=== PATIENT | female | born 1945 | race Caucasian/White ===

== ENCOUNTER → 2019-06-10 10:08 | Outpatient (CLI) | payer MEDICARE, SELFPAY ==
--- NOTE | ~2019-06-10 | MR_ITS ---
EXAMINATION: MR hip RT wo con DATE: 06/10/2019 11:15 INDICATION: Right hip pain. TECHNIQUE: Magnetic resonance imaging (MRI) of the right hip was performed without intravenous contra st. Sequences included axial and coronal PD-weighted FS FSE and axial T1-weighted FSE of the pelvis. Sequences of the hip included 2D FIESTA, T1-weighted fast GRE, and axial, coronal, and sagittal PD-we ighted FS FSE. COMPARISON: Right hip radiographs 04/12/2019 FINDINGS: Bones/cartilage: Bone alignment is normal. No fracture. There are changes of anterior and posterior fusion procedures in lumbar spine. There is symmetric mild osteoarthritis of the hips. Specifically, the right hip join t demonstrates partial thickness cartilage loss, subchondral cysts in acetabulum and femoral head, an d osteophytes. Labrum: There is extensive tearing of the acetabular codie bilaterally. Fluid: There is no hip joint effusion. There is mild bilateral trochanteric bursitis. Soft tissues: There is severe tendinopathy of the hamstring origins bilaterally. There are partial tears of the ham string origins bilaterally. The iliopsoas tendons are normal. There are partial tears of the right gl uteus medius and gluteus minimus tendons. There is a partial tear of left gluteus minimus tendon. Lef t gluteus medius tendon is intact. IMPRESSION: 1. Mild osteoarthritis of the hips. 2. Partial tears of the bilateral gluteus minimus tendons and right gluteus medius tendon. 3. Mild bilateral trochanteric bursitis. Reviewed, dictated and finalized at location A. IMPRESSION: 1. Mild osteoarthritis of the hips. 2. Partial tears of the bilateral gluteus minimus tendons and right gluteus med ius tendon. 3. Mild bilateral trochanteric bursitis.
== END ==
PROVIDERS: PCP Family Medicine; Visit Provider Orthopaedic Surgery
DX: M25.551 Pain in right hip (principal); M16.11 Unilateral primary osteoarthritis, right hip; M70.61 Trochanteric bursitis, right hip
CPT/HCPCS: 73721

== ENCOUNTER → 2019-11-08 09:05 | Outpatient (CLI) | payer MEDICARE, SELFPAY ==
--- NOTE | ~2019-11-08 | XR_ITS ---
XR lumbar spine 2-3V DATE: 11/08/2019 09:30 INDICATION: Lumbar region degeneration. Back pain. TECHNIQUE: Standing AP, lateral and coned lateral lumbosacral views COMPARISON: 12/29/2018 MRI lumbar spine FINDINGS: Postoperative changes again noted including laminectomy and interbody and posterior spinal fusion at L4-S1, including cage devices and pedicle screws and rods. Diffuse osteopenia. There is severe degenerative disease at L1-2, moderately severe degenerative disc disease at L3-4. No fracture or bone destruction is evident. The sacroiliac joints are intact. IMPRESSION: Laminectomies and interbody and posterior spinal fusion at L4-S1 Multilevel degenerative disc disease Reviewed, dictated and finalized at location A.
--- NOTE | ~2019-11-08 | CT_ITS ---
EXAMINATION: CT lumbar spine wo [facility] EXAM DATE: 11/08/2019 09:30 INDICATION: Low back pain, bilateral hip pain. Degenerative disc disease. TECHNIQUE: Spiral CT of the lumbar spine was performed without contrast. Axial, coronal and sagittal images were reviewed. The dose-length product (DLP) for this examination was 706.98 mGy-cm. The e xposure was tailored according to patient size (auto mA exposure control), and iterative reconstructi on (ASIR) was used as additional dose reduction technique. There is no prior study for comparison. C orrelation was made with MR lumbar spine 12/29/2018. FINDINGS: Posterior and interbody fusion L4-S1. There is no lucency surrounding the screws. No hardwa re fracture. There are L5 laminectomies. There is 2 mm anterolisthesis L3 on L4 with moderate loss of this disc height. There is moderate disc disease L1-2 and L3-4. There are no acute fractures identif ied. There are no suspicious marrow signal abnormalities. Severe right renal atrophy. There is mode rate abdominal aortic arterial sclerosis. There is severe right renal atrophy, with stone in the mid right ureter measuring about 6 mm. Level by level evaluation: T12-L1: Small posterior longitudinal ligament ossification centrally. Facet arthropathy: Mild. Neural foraminal stenosis: No stenosis. Central canal stenosis: Mild. L1-L2: There is a mild to moderate diffuse disc bulge. Facet arthropathy: Mild to moderate bilateral. Neural foraminal stenosis: Moderate right, mild to moderate left. Central canal stenosis: Mild. L2-L3: There is a mild diffuse disc bulge. Facet arthropathy: Mild. Neural foraminal stenosis: No stenosis. Central canal stenosis: No stenosis. L3-L4: There is a moderate diffuse disc bulge. Facet arthropathy: Moderate. Neural foraminal stenosis: Mild to moderate bilateral. Central canal stenosis: Moderate to severe. L4-L5: This level is fused. Facet arthropathy: Fused. Neural foraminal stenosis: No stenosis. Central canal stenosis: Posterior decompression. L5-S1: This level is fused. Facet arthropathy: Mild to moderate right. Neural foraminal stenosis: Mild left. Central canal stenosis: Posterior decompression. Compared to prior study, suspect that there has been mild progression in the spondylosis, with increa se in the central canal stenosis at L3-4. Increase in the disc disease at L1-2 and L3-4. IMPRESSION: 1. Right mid ureteral 6 mm stone, severe right-sided hydronephrosis and severe chronic renal atrophy . 2. L3-4 moderate to severe central canal stenosis. 3. Lesser spondylosis above. Reviewed, dictated and finalized at location A. IMPRESSION: 1. Right mid ureteral 6 mm stone, severe right-sided hydronephrosis and severe chronic renal atrophy. 2. L3-4 moderate to severe central canal stenosis. 3. Lesser spondylosis above.
== END ==
DX: M51.36 Other intervertebral disc degeneration, lumbar region (principal); N20.1 Calculus of ureter; N13.30 Unspecified hydronephrosis; M48.061 Spinal stenosis, lumbar region without neurogenic claudication; M47.816 Spondylosis without myelopathy or radiculopathy, lumbar region; Z98.1 Arthrodesis status
CPT/HCPCS: 72100; 72131

== ENCOUNTER 2024-09-05 10:56 | Outpatient (CLI) | payer MEDICARE, SELFPAY ==
--- NOTE | ~2024-09-05 | MR_ITS ---
MRI of the left hip Clinical history: Pain Technique: Coronal T1-weighted, T2-weighted, and proton-density fat-sat images, and axial T1-weighted and proton-density fat-sat images were acquired through the pelvis. Coronal T2-weighted images and c oronal, axial, and sagittal proton-density fat-sat images were acquired through the left hip. Findings: There is no acute fracture or avascular necrosis of either hip. There is diffuse severe cho ndromalacia throughout the left hip joint with small femoral head neck junction osteophytes. There is joint space narrowing superiorly with mild areas of subchondral reactive marrow edema in the acetabu lum and left femoral head. There is probable degenerative labral tearing. Moderate left hip joint eff usion is present, probably reactive. There is moderate to advanced degenerative change of the right hip joint, with diffuse moderate to hi gh-grade chondromalacia and small areas of subchondral cystic change at the right femoral head and ri ght acetabular roof. No right hip joint effusion. Visualized musculature about the pelvis and left hip is unremarkable. No muscle atrophy or edema. No soft tissue mass or fluid collection seen. Visually tendons are intact. 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 Moderate to severe degenerative change of the right hip joint, as detailed above. Reviewed, dictated and finalized at location . 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 Moderate to severe degenerative change of the right hip joint, as detailed danielle jimenez
== END 2024-09-05 10:57 | disposition home or self-care (01) ==
LOC: GOSHIMG 10:56
PROVIDERS: PCP Physician Assistant Surgical; Visit Provider Physician Assistant Surgical
DX: M16.12 Unilateral primary osteoarthritis, left hip (principal); S73.102A Unspecified sprain of left hip, initial encounter; X58.XXXA Exposure to other specified factors, initial encounter; M16.11 Unilateral primary osteoarthritis, right hip
CPT/HCPCS: 73721